=== PATIENT | female | born 1940 | race Caucasian/White ===

== ENCOUNTER → 2017-01-25 | Outpatient (CLI) | payer MEDICARE, BC ==
[~2017-01-25] MED LIST: ALBUTEROL17 G1 IH; AMBIEN PO; AMBIEN10 MG PO; AMLODIPINE BESYL5 MG PO; ASPIRIN PO; ASPIRIN325 M1 PO; COMBIVENT INH14.7 GM INH; COMBIVENT MININEB INH; FAMOTIDINE PO; IBUPROFEN PO; LEVAQUIN PO; LEVAQUIN250 MG PO; LEVOFLOXACIN500 MG PO; METAMUCIL SMOOT1 PKT PO; MULTI-VITAMIN1 TAB PO; MULTIVITAMIN1 UDCAP PO; NEXIUM PO; NILSTAT PO; PREDNISONE PO; PREDNISONE50 MG PO; PRILOSEC PO; TAMIFLU75 M1 PO; TYLOX 5/500 CAP1 CAP PO
--- NOTE | ~2017-01-25 | CT55 ---
[facility] A Service of [facility] & [facility] RADIOLOGY TEXT RESULTS PATIENT: BRAD PARSONS LOCATION: [facility] : 38 UNIT #: [id number] AGE: [address]: Baron Zaman MD SEX: F ORDER DR: [id number] [facility] [address] [place], [place] [address] [id number] O MR#: [id number] Acc #: [id number] NAME: BRAD PARSONS : 1940 SEX: F STUDY DATE/TIME: 01/25/2017 14:15 UNIT: [facility] ROOM: STUDY DESCRIPTION: CT Chest W Con Attending Physician: Baron Zaman M.D. Referring Physician: Baron Zaman M.D. Ordering Physician: Baron Zaman M.D. Primary Care Physician: Ebonie Mcelroy M.D. MEDICAL IMAGING REPORT This report is preliminary unless electronic signature is present EXAM Chest CT with contrast HISTORY Abnormal CT scan August 2016 demonstrating a mass. The patient complains of worsening shortness of breath over the past 6-[address] scan, 09/18/2014 TECHNIQUE Axial images were obtained with contrast. 100 mL of Isovue was used. This CT exam was performed with one or more of the following radiation dose reduction techniques: automatic exposure control, adjustment of mA and/or kV according to patient size, and iterative reconstruction. FINDINGS Chest images at mediastinal window demonstrate a mass in the left lower lobe laterally abutting the pleural surface. It has smooth margins and measures 2.1 x 3.1 cm, unchanged from the previous scan in 2014. 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 Given its lack of change in size, no further followup of this is needed. However, the patient also has a mass at the left hilum with spiculated margins that was not present on the previous examination. This mass measures 1.8 cm in diameter. It is accompanied by a left-sided suprahilar lymph node measuring 13.0 x 18.0 mm as well as two small lymph nodes, one in the AP window and one just lateral to the ascending aorta on the left side. The node in the AP window measures 8.0 x 12.0 mm and the periaortic node measures 6.0 x 14.0 mm. These nodes were not present on the previous scan. Malignancy is strongly suspected. Recommend further evaluation of this finding with PET/CT scanning. [facility]. [facility] A Service of [facility] / [facility] RADIOLOGY TEXT RESULTS PATIENT: BRAD PARSONS LOCATION: [facility] : 38 UNIT #: [id number] AGE: [address]: Baron Zaman MD SEX: F ORDER DR: Lung window imaging shows thickening along the major fissure on the right. This was seen on the previous scan as well. Emphysema is noted. IMPRESSION 1. The left lower lung field peripheral mass is stable since the previous examination consistent with a hamartoma. 2. There is however a new and very suspicious mass at the left hilum measuring 1.8 cm in diameter with new lymph nodes adjacent to it at the hilum and in the mediastinum. Worrisome for malignancy. Recommend PET/CT scanning for further evaluation and staging. Dictated by... Jordon Cedeño M.D. THIS IS AN ELECTRONICALLY VERIFIED REPORT Jordon Cedeño M.D. at 01/26/2017 5:00 PM Darby TD: 01/26/2017 16:35 JOB #: [id number] MEDICAL IMAGING REPORT Page 1 of 1 COPY
[2017-01-25 18:35] LABS: POC - CREATININE 0.73 mg/dL (0.44-1.03); POC - GFR >60.0 mL/min (>60)
== END | disposition home or self-care (01) ==
LOC: CECH 12:42
PROVIDERS: Internal Medicine
DX: R93.8 Abnormal findings on diagnostic imaging of other specified body structures (principal); R06.00 Dyspnea, unspecified; R91.8 Other nonspecific abnormal finding of lung field; I35.1 Nonrheumatic aortic (valve) insufficiency; I34.0 Nonrheumatic mitral (valve) insufficiency; I36.1 Nonrheumatic tricuspid (valve) insufficiency
CPT/HCPCS: 71260; 82565; 93306; Q9967